=== PATIENT | female | born 1960 | race Caucasian/White ===

== ENCOUNTER 2023-02-20 09:12 | Emergency (ER) | payer MEDICAID, SELFPAY ==
[2023-02-20] VITALS (23 sets, daily range): BP systolic 141–171; BP diastolic 89–110; PULSE 62–90; RESP 13–21; TEMP 36.5; O2SAT 94–100
--- NOTE | ~2023-02-20 | CT_ITS ---
Non-contrast Head CT History: Dizziness, headache Technique: Axial non-contrast imaging of the brain was performed. Dose reduction technique was used on this scan by utilizing automated exposure control and iterative reconstruction technique. The dose -length product (DLP) was 605.33 mGy-cm. Findings: There is no evidence of intracranial hemorrhage, mass lesion, or acute infarct. Brain par enchyma appears normal. The ventricles and subarachnoid spaces are normal in size. The calvarium ap pears normal. The visualized paranasal sinuses and mastoid air cells are clear. Impression: No significant abnormality seen. Reviewed, dictated and finalized at location . Impression: No significant abnormality seen.
--- NOTE | 2023-02-20 09:23 | ECG_ITS ---
Measurements Intervals [place] Rate: 86 P: 59 TX: 156 QRS: 8 QRSD: 88 T: 54 QT: 361 QTc: 433 Interpretive Statements SINUS RHYTHM LOW QRS VOLTAGE IN PRECORDIAL LEADS [QRS DEFLECTION < 1.0 mV IN CHEST LEADS] NO PREVIOUS ECG AVAILABLE FOR COMPARISON BORDERLINE ECG Electronically Signed On 02-20-2023 17:00:56 CDT by Quincy Henao M.D.
--- NOTE | 2023-02-20 09:46 | ED.DIZZY ---
HPI - Dizziness General Chief Complaint: Dizziness Stated Complaint: dizzy Time Seen by Provider: 02/20/23 09:27 History of Present Illness HPI Narrative: 63-year-old female reports for evaluation for intermittent dizziness x6 days. Patient states when she moves quickly, bends over or stands up from sitting, she feels lightheaded and nauseous for a few seconds, then it resolves. She states her symptoms started 6 days ago after she bent over and felt a pop behind her left eye. States that her sister advised her to start taking her blood pressure the past 2 days to see if this was the cause of her symptoms. She states her blood pressure has been running high, it was 176/98 on Monday and 160/98 this morning. She does not take anything for hypertension and has not been monitoring her blood pressure previously. She does not have a PCP. She denies vision changes, focal numbness or weakness, palpitations, syncope, chest pain or shortness of breath, abdominal pain, nausea, vomiting, diarrhea, fever, otalgia, aphasia, dysarthria, ataxia. She does report intermittent mild posterior headaches for the past month. Denies head injury or trauma. Related Data Allergies Allergy/AdvReac Type Severity Reaction Status Date / Time No Known Allergies Allergy Verified 02/20/23 10:14 Review of Systems Review of Systems: CONSTITUTIONAL: Denies fever, chills EYES: Denies visual changes, redness, or discharge. ENT: Denies rhinorrhea, congestion, sore throat, or otalgia. CARDIOVASCULAR: Denies chest pain, palpitations, or edema. RESPIRATORY: Denies cough or dyspnea. GASTROINTESTINAL: Denies abdominal pain, nausea, vomiting, or diarrhea. GENITOURINARY: Denies dysuria or hematuria. SKIN: Denies rash or itching. MUSCULOSKELETAL: Denies back pain, joint pain, or myalgia. NEUROLOGIC: See HPI PSYCHIATRIC: Denies anxiety or depression. Exam Narrative: GENERAL: Well-appearing, in no acute distress. Patient resting comfortably in exam bed. She is pleasant and conversational. HEAD: Normocephalic EYES: PERRLA, EOMI. No nystagmus ENT: Nares clear. Mucous membranes moist. Oropharynx without tonsillar hypertrophy exudate or other lesions. Right TM [place] nonbulging, normal canal. Left TM rupture. No effusion, erythema. Normal canal. NECK: Supple. No nuchal rigidity. CHEST: No respiratory distress. Clear to auscultation, no adventitious breath sounds. HEART: Regular rate and rhythm. No murmur heard. Normal peripheral pulses. ABDOMEN: Soft, nontender, normal active bowel sounds. No CVA tenderness. EXTREMITIES: Normal range of motion. No edema. SKIN: Warm, dry, no rash. NEURO: No focal deficits. Alert and oriented x3. Cranial nerves II through XII intact. Strength 5/5 in BUE and BLE. Sensation intact throughout. Normal [id number]. No pronator drift. No aphasia or dysarthria. PSYCH: Normal mood and affect. Course Vital Signs Vital signs: Vital Signs Temperature 97.7 F 02/20/23 09:13 Pulse Rate 90 02/20/23 09:13 Respiratory Rate 18 02/20/23 09:13 Blood Pressure 169/94 H 02/20/23 09:13 Pulse Oximetry 100 02/20/23 09:13 Oxygen Delivery Room Air 02/20/23 09:13 Temperature 97.7 F 02/20/23 09:13 Pulse Rate 85 02/20/23 11:30 Respiratory Rate 13 02/20/23 11:30 Blood Pressure 171/92 H 02/20/23 11:16 Pulse Oximetry 99 02/20/23 11:30 Oxygen Delivery Room Air 02/20/23 09:13 MDM - Dizziness MDM Narrative Medical decision making narrative: 63-year-old female reports for evaluation for intermittent dizziness with position changes after she felt a pop behind her left eye 6 days ago. See HPI for further history. Initial vitals reveal elevated blood pressure, otherwise unremarkable. Patient is well-appearing on exam. Exam is significant for left TM rupture which likely explains the popping sensation the patient experienced prior to the onset of symptoms. CT brain shows no acute intracranial abnormal
[2023-02-20] MEDS: MECLIZINE HCL 25 MG TABLET PO (10:15)
[2023-02-20] MEDS: SODIUM CHLORIDE 0.9% IV 1,000 ML 999 ML IV CONT (10:15)
[2023-02-20] MEDS: Please add drug allergy info to patient profile. 1 EACH XX (10:15)
[2023-02-20 10:25] LABS: Basophils Percent Auto 0.4 % (0.2-1.2); Eosinophils Absolute Auto 0.1 K/mm3 (0-0.3); Eosinophils Percent Auto 2.2 % (0-4.4); Hematocrit 41.2 % (37.0-47.0); Hemoglobin 13.3 g/dL (12.0-15.0); Immature Granulocyte Absolute 0.01 K/mm3 (0.00-0.031); Immature Granulocyte Percent A 0.2 % (0-0.5); Lymphocytes Absolute Auto 1.84 K/mm3 (0.9-3.2); Lymphocytes Percent Auto 34.3 % (18.3-44.2); Mean Corpuscular HGB Conc 32.3 g/dl (32-36); Mean Corpuscular Hemoglobin 28.9 pg (26-34); Mean Corpuscular Volume 89.6 fl (80-100); Mean Platelet Volume 10.4 fl (7.4-10.4); Monocytes Absolute Auto 0.5 K/mm3 (0.1-0.6); Monocytes Percent Auto 8.4 % (2.6-8.5); Neutrophils Absolute Auto 2.9 K/mm3 (1.3-6.7); Neutrophils Percent Auto 54.5 % (45.5-73.1); Platelet Count Result 200 k/mm3 (150-375); Red Cell Distribution Width 12.9 % (11.5-14.5); White Blood Count 5.4 K/mm3 (4.5-10.0)
[2023-02-20 10:27] LABS: Appearance Urine Clear (Clear); Bilirubin Urine Negative (Negative); Blood Urine Negative (Negative); Color Urine Yellow (Yellow); Glucose Urine UA Negative (Negative); Ketones Urine Negative (Negative); Leukocyte Esterase Ur Negative LEU/UL (Negative); Nitrate Urine Negative (Negative); Protein Urine Negative (Negative); Specific Grav Ur 1.019 (1.001-1.035); Urobilinogen Urine 0.2 mg/dL (<2.0); pH Urine 5.5 (5.0-9.0)
[2023-02-20 10:35] LABS: Alanine Aminotransferase 14 U/L (6-35); Albumin Level 4.1 g/dL (3.5-5.1); Alkaline Phosphatase 56 U/L (38-126); Anion Gap 5 mmol/L (8-16); Aspartate Amino Transferase 19 U/L (14-36); Bilirubin,Total 0.4 mg/dL (0.2-1.3); Blood Urea Nitrogen 19 mg/dL (7-17); Calcium 9.4 mg/dL (8.4-10.2); Carbon Dioxide 28 mmol/L (22-30); Chloride 105 mmol/L (98-107); Estimated CRCL calculation 51 ml/min; Estimated Glomerular Filt Rate 50; Glucose 98 mg/dL (65-110); Potassium 4.2 mmol/L (3.4-5.0); Sodium 138 mmol/L (137-145)
[2023-02-20 10:45] LABS: Add Urine Microscopic? NO
[2023-02-20 10:47] LABS: NT Pro B Type Natriuretic Pept 50 pg/mL (19.9-100); Troponin I < 0.012 ng/mL (0.000-0.034)
== END 2023-02-20 11:36 | disposition home or self-care (01) ==
PROVIDERS: Emergency Medicine; Emergency Provider Physician Assistant
DX: H72.92 Unspecified perforation of tympanic membrane, left ear (principal); R42 Dizziness and giddiness; R03.0 Elevated blood-pressure reading, without diagnosis of hypertension; R94.31 Abnormal electrocardiogram [ECG] [EKG]
CPT/HCPCS: 36415; 70450; 80053; 81003; 83880; 84484; 85025; 93005; 96360; 99284; A9270; J7030